=== PATIENT | female | born 1950 | race Caucasian/White ===

== ENCOUNTER 2016-08-19 06:29 | Emergency (ER) | payer MEDICARE, OTHER ==
--- NOTE | 2016-08-19 07:05 | EDM.PDOC ---
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 She notes she has had the droop of her right superior eyelid and paresthesias of her right face and right arm for the last 3 days as well with no resolution. She denies other symptoms or complaints including headache, visual changes, speech difficulty, seizures, focal weakness or numbness or paresthesias, nausea or vomiting, etc. She denies trauma to her head or other injuries. Has history of hypertension treated with metoprolol, denies history of MA or stroke. Denies history of Phan's Palsy. - Related Data Allergies Allergy/AdvReac Type Severity Reaction Status Date / Time codeine Allergy Other Verified 05/31/14 21:37 ofloxacin [From Floxin] Allergy Other Verified 05/31/14 21:37 [id number] Reductase Allergy Other Verified 05/31/14 21:37 Inhibitor Home Meds: Home Meds Aspirin [Children's Aspirin] 81 mg PO DAILY 05/31/14 [History] Biotin 1 mg PO DAILY 05/31/14 [History] Famotidine [Pepcid] 10 mg PO DAILY PRN 05/31/14 [History] Latanoprost [Latanoprost] 1 drop EYELF BEDTIME 05/31/14 [History] Lutein/Minerals/Vit A,C & E [Ocuvite] 1 tab PO DAILY 05/31/14 [History] Metoprolol Tartrate 25 mg PO DAILY 05/31/14 [History] Multivitamin with Minerals [Hair, Skin & Nails] 1 tab PO DAILY 05/31/14 [History ] Timolol [Betimol] 1 drop EYELF DAILY 05/31/14 [History] Ubidecarenone [Coq10] 50 mg PO DAILY 05/31/14 [History] Past Medical History Cardiovascular History: Reports: Hypertension. Denies: MA Neurological History: Denies: Brain Injury, Cerebral Aneurysms, Concussion, CVA , Head Trauma, TIA Social & Family History - Tobacco Use Smoking Status *Q: Former Smoker Years of Tobacco use: 32 Second Hand Smoke Exposure: Yes - Alcohol Use Days Per Week of Alcohol Use: 0 (No previous DWI, etc.) Number of Drinks Per Day: 1 (One beer every 3 months) Total Drinks Per Week: 0 - Recreational Drug Use Recreational Drug Use: No Drug Use in Last 12 Months: No - Living Situation & Occupation Living situation: Reports: , Occupation: Employed ED ROS GENERAL - Review of Systems Review Of Systems: ROS reveals no pertinent complaints other than HPI. ED EXAM, NEURO - Physical Exam Exam: See Below Text/Narrative:: Vitals SBP 150/84 HR 70 O2 98% on Room Air RR 16 T Exam Limited By: No Limitations General Appearance: Alert, WD/WN, No Apparent Distress Eye Exam: Bilateral Eye: EOMI, Normal Fundi, Normal Inspection, PERRL Ears: Normal External Exam, Normal Canal, Hearing Grossly Normal, Normal TMs Nose: Normal Inspection, Normal Mucosa, No Blood Throat/Mouth: Normal Inspection, Normal Lips, Normal Teeth, Normal Gums, Normal Oropharynx, Normal Voice, No Airway Compromise Head Exam: Atraumatic, Normocephalic Neck: Normal Inspection, Supple, Non-Tender, Full Range of Motion. No: Lymphadenopathy (L), Lymphadenopathy (R), Tender Lateral, Tender Midline Respiratory/Chest: No Respiratory Distress, Lungs Clear, Normal Breath Sounds, No Accessory Muscle Use, Chest Non-Tender Cardiovascular: Normal Peripheral Pulses, Regular Rate, Rhythm, No Edema, No Gallop, No Murmur, No Rub GI/Abdominal: Normal Bowel Sounds, Soft, Non-Tender, No Organomegaly, No Distention Neurological: Alert, Normal Mood/Affect, Normal Dorsiflexion, Normal Plantar Flexion, Normal Gait, Normal Reflexes, No Motor/Sensory Deficits, Oriented x 3, Other (Subtle droop of right superior eyelid. Able to open and close right eye with full strength. Remainder of cranial nerves II-XII intact. Subjective paresthesias of right arm but no appreciable sensory deficits to LT, PP, or proprioception of all extremities. 2-point discrimination intact throughout body. No pronator drift of arms or legs. No dysmetria. No clonus or spasticity. Speech normal without dysarthria or aphasia. Calculation, naming, and praxis are intact. NIH Stroke Scale Score of 1 for mild droop of right superior eyelid and stable on exam every 15 minutes x 3. ) DTR: 2+: Patella (R), Patella (L), Achilles (R), Achilles (L) Back Exam: Normal Inspection, Full Range of Motion. No: CVA Tenderness (L), CVA Tenderness (R), Paraspinal Tenderness, Vertebral Tenderness Extremities: Normal Inspection, Normal Range of Motion, Non-Tender, No Pedal Edema, Normal Capillary Refill Psychiatric: Normal Affect, Normal Mood Skin Exam: Warm, Dry, Intact, Normal Color, No Rash Course - Orders/Labs/Meds Orders: Active Orders 24 hr Category Date Time Status Head wo Cont [CT] Stat Exams 08/19/16 06:55 Taken Labs: Laboratory Tests 08/19/16 08/19/16 08/19/16 Range/Units 06:50 06:50 06:50 WBC 4.8 (4.0-10.2) K/uL RBC 4.59 (3.77-5.09) M/uL Hgb 13.5 (11.7-15.5) g/dL Hct 40.4 (34.0-46.0) % MCV 88.0 (84.0-98.0) fL MCH 29.4 (28.2-33.3) pg MCHC 33.4 (31.7-36.0) g/dL RDW 12.9 (11.2-14.1) % Plt Count 251 (150-350) K/uL Neut % (Auto) 52.3 (45.0-80.0) % Lymph % (Auto) 32.0 (10.0-50.0) % [place] % (Auto) 12.6 (2.0-14.0) % Eos % (Auto) 2.5 (0.0-5.0) % Baso % (Auto) 0.6 (0.0-2.0) % Neut # (Auto) 2.48 (1.40-7.00) K/uL Lymph # (Auto) 1.52 (0.50-3.50) K/uL [place] # (Auto) 0.60 (0.00-1.00) K/uL Eos # (Auto) 0.12 (0.00-0.50) K/uL Baso # (Auto) 0.03 (0.00-0.20) K/uL PT 10.2 (9.8-11.7) SEC INR 1.0 APTT 26.6 (23.5-30.0) SEC Sodium 141 (136-145) mmol/L Potassium 4.1 (3.5-5.1) mmol/L Chloride 108 H (98-107) mmol/L Carbon Dioxide 26.8 (21.0-32.0) mmol/L BUN 21 H (7-18) mg/dL Creatinine 0.64 (0.51-1.17) mg/dL Est Cr Clr Drug Dosing TNP Estimated GFR (MDRD) > 60 mL/min Glucose 130 H (74-106) mg/dL Calcium 8.9 (8.5-10.1) mg/dL Total Bilirubin 0.7 (0.2-1.0) mg/dL AST 22 (15-37) U/L ALT 18 (12-78) U/L Alkaline Phosphatase 121 H (46-116) IU/L Total Protein 6.9 (6.4-8.2) g/dL Albumin 3.6 (3.4-5.0) g/dL - Radiology Interpretation Free Text/Narrative:: EKG shows NSR with rate of [address] elevation or other abnormalities. Departure - Departure Time of Disposition: 07:40 Disposition: DC/Tfer to Acute Hospital 02 Clinical Impression: Facial paresthesia, Paresthesia of right upper extremity Drooping eyelid Qualifiers: Laterality: right Qualified Code(s): H02.401 - Unspecified ptosis of right eyelid - Discharge Information Forms: ED Department Discharge - My Orders Last 24 Hours: My Active Orders 08/19/16 06:55 Head wo Cont [CT] Stat - Assessment/Plan Last 24 Hours: My Active Orders 08/19/16 06:55 Head wo Cont [CT] Stat Assessment:: Droop of right eyelid, House-Brackmann 2. Paresthesias of right face and arm. NIH Stroke Scale Score of 1 for slight droop of right eyelid. Plan: 1. CT of the head normal. 2. Called to discuss with on-call neurologist at [facility] Dr. Baltazar who agrees with transfer to ER with MRI of brain and CTA. 3. Discussed with ER provider Dr. Guan who agrees to accept. 4. Allow permissive hypertension with SBP up to 185. 5. Transfer by ALS ground ambulance to [facility] ER in [place], [place] with telemetry, pulse oximetry, NS at 100 mL/hour, oxygen to keep O2 > 92%, and permissive hypertension with SBP up to 185.
[2016-08-19 07:17] LABS: CHLORIDE,CL 108 mmol/L (98-107); SODIUM,NA 141 mmol/L (136-145)
[2016-08-19] MEDS ORDERED: Sodium Chloride 0.9% 1,000 ML IV SCH (08:15)
== END 2016-08-19 08:14 ==
LOC: LL.ED 06:29
DX: H02.401 Unspecified ptosis of right eyelid (principal); R20.8 Other disturbances of skin sensation; I10 Essential (primary) hypertension; Z87.891 Personal history of nicotine dependence; Z88.5 Allergy status to narcotic agent; Z88.8 Allergy status to other drugs, medicaments and biological substances; Z79.82 Long term (current) use of aspirin; Z79.899 Other long term (current) drug therapy
CPT/HCPCS: 36000; 36415; 70450; 71010; 80053; 82962; 85025; 85610; 85730; 99284; 99285

== ENCOUNTER 2019-04-01 07:52 | Day surgery (SDC) | payer MEDICARE, OTHER ==
[~2019-04-01 07:52] MED LIST: Lactated Ringers 1,000 ML IV SCH; Sodium Chloride 0.9% 10 ML Syringe FLUSH PRN
[2019-04-01] MEDS ORDERED: Midazolam 1 MG/ML 2 ML SDV ONE ×2 (08:38→09:16)
[2019-04-01] MEDS ORDERED: Propofol 200 MG/20 ML SDV ONE ×2 (08:39→09:16)
--- NOTE | 2019-04-01 09:16 | PCM.PN ---
- General Info Date of Service: 04/01/19 - Review of Systems Systems Review Comment:: 68 y/o female here for colonoscopy. Last colon exam was 12 years ago. She has noted painful area of swelling in perineum recently with small amount of bleeding. Proposed colonoscopy discussed with the patient. Will examine perineum but no guarantee of lesion removal made. She agrees to proceed accepting risks. - Patient Data Vitals - Most Recent: Last Vital Signs Temp 97.8 F 04/01/19 08:25 Pulse 71 04/01/19 08:25 Resp 18 04/01/19 08:25 BP 126/78 04/01/19 08:25 Pulse Ox 97 04/01/19 08:25 Weight - Most Recent: 51.71 kg Med Orders - Current: Current Medications Lactated Ringer's (Ringers, Lactated) 1,000 mls @ 125 mls/hr IV ASDIRECTED KRISTINA Last Admin: 04/01/19 08:37 Dose: 125 mls/hr Sodium Chloride (Saline Flush) 10 ml FLUSH ASDIRECTED PRN PRN Reason: Keep Vein Open Discontinued Medications Midazolam HCl (Versed 1 Mg/Ml) Confirm Administered Dose 2 mg .ROUTE .STK-MED ONE Stop: 04/01/19 08:39 Propofol (Diprivan 20 Ml) Confirm Administered Dose 400 mg .ROUTE .STK-MED ONE Stop: 04/01/19 08:40 Sepsis Event Note - Focused Exam Vital Signs: Vital Signs Temp Pulse Resp BP Pulse Ox 04/01/19 08:25 97.8 F 71 18 126/78 97 Date Exam was Performed: 04/01/19 Time Exam was Performed: 09:12 - Problem List Review Problem List Initiated/Reviewed/Updated: Yes - Assessment Assessment:: Colon cancer screening perineal lesion - Plan Plan:: Colonoscopy
--- NOTE | 2019-04-01 09:49 | PCM.OPNOTE ---
- General Post-Op/Procedure Note Date of Surgery/Procedure: 04/01/19 Operative Procedure(s): Colonoscopy and Anoscopy Findings: Inflamed external hemorrhoids Normal Colon Pre Op Diagnosis: Colon Cancer Screening Post-Op Diagnosis: Normal Colon. External Hemorrhoids Anesthesia Technique: MAC Primary Surgeon: Juan Zhang Pathology: none EBL in mLs: 0 Complications: None Condition: Good
[2019-04-01 10:22] VITALS: BP 124/78; PULSE 77
--- NOTE | 2019-04-01 10:24 | OR ---
Date of Procedure: 04/01/2019 PREOPERATIVE DIAGNOSIS: Colon cancer screening. POSTOPERATIVE DIAGNOSIS: External hemorrhoids. OPERATIONS PERFORMED: Colonoscopy and anoscopy. INDICATIONS FOR SURGERY: This 68-year-old female comes for screening colonoscopy. She has recently noticed some persistent burning discomfort in the area of the rectum. FINDINGS: The patient's colon appears normal. No polyps or other lesions were seen. She is noted to have some external hemorrhoidal tissue most prominently anteriorly near the midline with a mild degree of induration and mild hyperemia of the tissue. No other rectal masses or pathology were seen. DESCRIPTION OF PROCEDURE: The patient was taken to the operating room. She was given intravenous sedation, and with her in the left lateral decubitus position, examination of the rectum was carried out. Some prominent external hemorrhoid tissue was noted anteriorly, and there was mild induration and mild hyperemia, but no isolated lesions or rectal masses were noted. Digital rectal exam was performed. Anoscopy was also performed and no other pathology was identified. The Olympus colonoscope was inserted into the rectum. Retroflexed examination of the rectal canal was performed. The scope was then carefully advanced under direct visualization through the entire length of the colon until the cecum was reached. Cecal acquisition was confirmed by noting the normal internal cecal anatomy including the appendiceal orifice and ileocecal valve. The light was also noted to transilluminate the abdominal wall in the right lower quadrant. After examining the cecum, the scope was slowly withdrawn sequentially re- examining the colonic segments until the entire colon and rectum had been fully examined. The scope was removed, and the patient was taken from the operating room in satisfactory condition. ESTIMATED BLOOD LOSS: 0. COMPLICATIONS: None. PROGNOSIS: Good. ALEX Zhang MD /[id number]
== END 2019-04-01 10:50 | disposition home or self-care (01) ==
LOC: LL.SDS 07:52
PROVIDERS: ATTEND Surgery
DX: K64.4 Residual hemorrhoidal skin tags (principal); I10 Essential (primary) hypertension; Z88.8 Allergy status to other drugs, medicaments and biological substances; Z88.1 Allergy status to other antibiotic agents; Z88.5 Allergy status to narcotic agent; Z79.82 Long term (current) use of aspirin; Z79.899 Other long term (current) drug therapy; Z87.891 Personal history of nicotine dependence
CPT/HCPCS: 45378; J2250; J2704; J7120; 00812

== ENCOUNTER 2019-07-17 15:40 | Observation (INO) | payer MEDICARE, OTHER ==
[2019-07-17] MEDS ORDERED: Ticagrelor 90 MG Tab PO ONE (15:48)
[2019-07-17] MEDS ORDERED: Famotidine 20 MG/2 ML SDV IVPUSH ONE (15:48)
[2019-07-17] MEDS ORDERED: Metoprolol Tartrate 5 MG/5 ML SDV IVPUSH ONE (15:48)
[2019-07-17] MEDS ORDERED: Aspirin 81 MG Tab.Chew CHEW ONE (15:48)
--- NOTE | 2019-07-17 15:48 | EDM.PDOC ---
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 140s to 160s with spontaneous improvement to the 110s without treatment. Note heart rates in the 80s prior to admission after IV Lopressor was given with no other ectopy or arrhythmia Chest x-ray, portable, shows evidence of moderate COPD changes with additional likely stable 2 cm left lower lobe pulmonary mass. Right upper lobe port noted. No pulmonary infiltrates, cardiomegaly, CHF, pneumothorax, etc. Departure - Departure Time of Disposition: 17:35 Disposition: Refer to Observation Condition: Good Clinical Impression: Peptic reflux disease, PSVT (paroxysmal supraventricular tachycardia), PVCs ( premature ventricular contractions), Hyperthyroidism, Hyponatremia, Hypoalbuminemia, Elevated lactic acid level, Lung cancer COPD (chronic obstructive pulmonary disease) Qualifiers: COPD type: emphysema Emphysema type: panlobular Qualified Code(s): J43.1 - Panlobular emphysema Osteoarthritis Qualifiers: Osteoarthritis location: multiple joints Osteoarthritis type: primary Qualified Code(s): M89.49 - Other hypertrophic osteoarthropathy, multiple sites Chest pain Qualifiers: Chest pain type: precordial pain Qualified Code(s): R07.2 - Precordial pain Hypertension Qualifiers: Hypertension type: essential hypertension Qualified Code(s): I10 - Essential ( primary) hypertension Sepsis Event Note - Focused Exam Vital Signs: Vital Signs Temp Pulse Pulse Resp BP BP Pulse Ox 07/17/19 17:10 90 20 121/73 98 07/17/19 16:40 90 22 H 132/74 98 07/17/19 16:03 113 H 132/73 07/17/19 15:47 36.4 C 147 H 19 133/100 H 96 Date Exam was Performed: 07/17/19 Time Exam was Performed: 18:40 - Problem List & Annotations (1) Chest pain SNOMED Code(s): 46467354 Code(s): R07.9 - CHEST PAIN, UNSPECIFIED Status: Acute Priority: Medium Current Visit: Yes Onset Date: 07/17/19 Annotation/Comment:: Chest pain protocol initiated immediately upon patient's arrival to this facility. Note symptoms likely related to her PSVT with resolution of symptoms after improvement of her tachycardia as below. Note positive CK index and elevated CK- MB as above with initiation of standard rule out NM orders. Cardiology consultation depending on her clinical course. Consider possible cardiac workup on an outpatient basis, however note current lung cancer therapy. In spite of mild BNP elevation and mild secondary hyponatremia no significant clinical evidence of CHF. Note normal echocardiogram on 02/16/19. Mild change in troponin I likely secondary to her tachycardia and borderline CHF as above, however this is still normal. Qualifiers: Chest pain type: precordial pain Qualified Code(s): R07.2 - Precordial pain (2) PSVT (paroxysmal supraventricular tachycardia) SNOMED Code(s): 45802235 Code(s): I47.1 - SUPRAVENTRICULAR TACHYCARDIA Status: Acute Priority: High Current Visit: Yes Onset Date: 02/08/19 Annotation/Comment:: Recurrence of PSVT with significant symptomatology as above. Note that the patient did take an additional dose of 180 mg of Procardia since ED shortly after onset of the above symptoms. Low-dose IV Lopressor was given in the emergency room with additional low-dose oral Toprol XL to be given shortly after admission. Further medication adjustment during this hospitalization depending on her clinical course. (3) Elevated lactic acid level SNOMED Code(s): 3293336 Code(s): R79.89 - OTHER SPECIFIED ABNORMAL FINDINGS OF BLOOD CHEMISTRY Status: Acute Priority: High Current Visit: Yes Onset Date: 07/17/19 Annotation/Comment:: No Fever, leukocytosis, or evidence of infection, sepsis, etc. Lactic acid level to be repeated with the next set of cardiac enzymes. IV fluids and IV antibiotics will be delayed for the time being secondary to borderline CHF as above, etc. (4) COPD (chronic obstructive pulmonary disease) SNOMED Code(s): 62783951 Code(s): J44.9 - CHRONIC OBSTRUCTIVE PULMONARY DISEASE, UNSPECIFIED Status : Chronic Priority: Medium Current Visit: Yes Annotation/Comment:: Stable by patient history with no current medical therapy or bronchitic symptoms Qualifiers: COPD type: emphysema Emphysema type: panlobular Qualified Code(s): J43.1 - Panlobular emphysema (5) Hypertension SNOMED Code(s): 35419891 Code(s): I10 - ESSENTIAL (PRIMARY) HYPERTENSION Status: Chronic Priority : High Current Visit: Yes Annotation/Comment:: Initially somewhat elevated secondary to her tachycardia, however improved after IV Lopressor as above. Qualifiers: Hypertension type: essential hypertension Qualified Code(s): I10 - Essential (primary) hypertension (6) Hyperthyroidism SNOMED Code(s): 21673518 Code(s): E05.90 - THYROTOXICOSIS, UNSP WITHOUT THYROTOXIC CRISIS OR STORM Status: Chronic Priority: Medium Current Visit: Yes Annotation/Comment:: Note that her previous low dose Synthroid supplement was discontinued by her providers at [facility] yesterday. Consider repeat TSH in 4 weeks. Further workup depending on her clinical course with multiple previous thyroid ultrasounds and also previous fine-needle aspiration biopsy as above. (7) Hypoalbuminemia SNOMED Code(s): 198394954 Code(s): E88.09 - [facility] DISORDERS OF PLASMA-PROTEIN METABOLISM, NEC Status: Acute Priority: Medium Current Visit: Yes Onset Date: 07/17/19 Annotation/Comment:: Observe for now. Note current chemotherapy. (8) Hyponatremia SNOMED Code(s): 28260260 Code(s): E87.1 - HYPO-OSMOLALITY AND HYPONATREMIA Status: Acute Priority : Medium Current Visit: Yes Onset Date: 07/17/19 Annotation/Comment:: As above (9) Osteoarthritis SNOMED Code(s): 314921388 Code(s): M19.90 - UNSPECIFIED OSTEOARTHRITIS, UNSPECIFIED SITE Status: Chronic Priority: Medium Current Visit: Yes Annotation/Comment:: Stable by history with no bone pain despite history of skeletal metastases from her lung cancer. Qualifiers: Osteoarthritis location: multiple joints Osteoarthritis type: primary Qualified Code(s): M89.49 - Other hypertrophic osteoarthropathy, multiple sites (10) PVCs (premature ventricular contractions) SNOMED Code(s): 52853763 Code(s): I49.3 - VENTRICULAR PREMATURE DEPOLARIZATION Status: Chronic Priority: Medium Current Visit: Yes Onset Date: 02/08/19 Annotation/ Comment:: No PVCs during today's evaluation. (11) Peptic reflux disease SNOMED Code(s): 182576848 Code(s): K21.9 - GASTRO-ESOPHAGEAL REFLUX DISEASE WITHOUT ESOPHAGITIS Status: Chronic Priority: Medium Current Visit: Yes Annotation/Comment:: Stable by history with high-dose IV Pepcid given as GI prophylaxis in the emergency room. (12) Lung cancer SNOMED Code(s): 225903278 Code(s): C34.90 - MALIGNANT NEOPLASM OF UNSP PART OF UNSP BRONCHUS OR LUNG Status: Acute Current Visit: Yes Annotation/Comment:: Note patient started chemotherapy for her left lower lobe lung cancer on 07/15/19 with no side effects to this point other than some mild oral stomatitis. Previous radiation therapy. Note close follow-up by oncology the [facility]. Fine- needle aspiration biopsy of the mediastinal/pulmonary lymph nodes indicate PD- L1 adenocarcinoma of the lung. Note previous history of tobacco use as above. Qualifiers: Laterality: left Lung location: lower lobe of lung Qualified Code(s): C34.32 - Malignant neoplasm of lower lobe, left bronchus or lung - Problem List Review Problem List Initiated/Reviewed/Updated: Yes - My Orders Last 24 Hours: My Active Orders 07/17/19 15:48 Cardiac Monitoring [RC] . DIRECTED Oxygen Therapy, ED [RC] PRN Vital Signs [RC] PFP Chest 1V Frontal [CR] Stat Sodium Chloride 0.9% [Saline Flush] 10 ml FLUSH ASDIRECTED PRN Obtain Past Medical Record [OM.PC] Urgent Resuscitation Status Stat 07/17/19 15:49 EKG Documentation Completion [RC] ASDIRECTED Peripheral IV Care [RC] . DIRECTED Pulse Oximetry [RC] CONTINUOUS Up With Assistance [RC] PFP Peripheral IV Insertion Adult [OM.PC] Stat 07/17/19 Breakfast Nothing per Oral Now Diet [DIET] - Assessment/Plan Admission H&P: Please use this note as an admission H&P Last 24 Hours: My Active Orders 07/17/19 15:48 Cardiac Monitoring [RC] . DIRECTED Oxygen Therapy, ED [RC] PRN Vital Signs [RC] PFP Chest 1V Frontal [CR] Stat Sodium Chloride 0.9% [Saline Flush] 10 ml FLUSH ASDIRECTED PRN Obtain Past Medical Record [OM.PC] Urgent Resuscitation Status Stat 07/17/19 15:49 EKG Documentation Completion [RC] ASDIRECTED Peripheral IV Care [RC] . DIRECTED Pulse Oximetry [RC] CONTINUOUS Up With Assistance [RC] PFP Peripheral IV Insertion Adult [OM.PC] Stat 07/17/19 Breakfast Nothing per Oral Now Diet [DIET] Assessment:: as above Plan: As above. Extensive precautions were given to the patient and her , who are in agreement with the treatment plan. The patient's condition is stable enough for observation status and general supervision.
[2019-07-17] MEDS: Sodium Chloride 0.9% 10 ML Syringe FLUSH PRN (16:23)
[2019-07-17 16:24] LABS: PTT,PARTIAL THROMBOPLSTIN TIME 20.2 SEC (24.5-32.8)
[2019-07-17 16:37] LABS: CHLORIDE,CL 101 mmol/L (98-107); SODIUM,NA 133 mmol/L (136-145)
[2019-07-17] MEDS ORDERED: Sodium Chloride 0.9% 10 ML Syringe FLUSH PRN (18:51)
[2019-07-17] MEDS ORDERED: Temazepam 15 MG Cap PO PRN (18:51)
[2019-07-17] MEDS ORDERED: Ondansetron 4 MG Tab.DIS PO PRN (19:15)
[2019-07-17] MEDS: Metoprolol Succinate 25 MG Tab.ER PO SCH (19:37)
[2019-07-17] MEDS: Latanoprost 0.005% Ophth Soln 2.5 ML Bottle EYEBOTH SCH (19:38)
[2019-07-17] MEDS: Timolol Maleate 0.5% Ophth Soln 5 ML Bottle EYEBOTH SCH (19:38)
[2019-07-18] MEDS: Acetaminophen 325 MG Tab PO PRN ×2 (04:24→15:27)
[2019-07-18 08:15] LABS: HEMOGLOBIN A1C 7.1 % (4.3-5.7)
[2019-07-18] MEDS: Diltiazem 180 MG Cap.CD PO SCH (08:33)
[2019-07-18] MEDS: Aspirin 81 MG Tab.Chew PO SCH (08:33)
[2019-07-18] MEDS: Magnesium Oxide 400 MG Tab PO SCH (08:33)
[2019-07-18] MEDS: Timolol Maleate 0.5% Ophth Soln 5 ML Bottle EYEBOTH SCH ×2 (08:33→20:20)
[2019-07-18] MEDS: Folic Acid 1 MG Tab PO SCH (08:33)
--- NOTE | 2019-07-18 09:06 | PCM.PN ---
- General Info Date of Service: 07/18/19 Admission Dx/Problem (Free Text): 1. Chest pain 2. PSVT 3. Left-sided lung cancer Functional Status: Reports: Pain Controlled, Ambulating, Urinating, Incentive Spirometry. Denies: Tolerating Diet (Nothing by mouth), New Symptoms Pain Score: 5 (Low back pain) - Review of Systems General: Reports: No Symptoms. Denies: Fever, Weakness, Fatigue, Malaise, Chills, Night Sweats, Appetite (Wants breakfast) HEENT: Reports: Glasses. Denies: Dysphasia, Ear Pain, Eye Pain, Headaches, Post Nasal Drip, Sinus Congestion, Sore Throat, Rhinitis, Visual Changes Pulmonary: Reports: No Symptoms. Denies: Shortness of Breath, Pleuritic Chest Pain, Cough, Sputum, Hemoptysis, Wheezing Cardiovascular: Reports: No Symptoms. Denies: Chest Pain, Palpitations, Dyspnea on Exertion, Orthopnea, PND, Edema, Lightheadedness Gastrointestinal: Reports: No Symptoms, Other (No bowel movement to this point) . Denies: Abdominal Pain, Constipation, Decreased Appetite, Diarrhea, Difficulty Swallowing, Flatus, Hematochezia, Melena, Nausea, Vomiting Genitourinary: Reports: No Symptoms. Denies: Dysuria, Frequency, Burning, Urgency, Incontinence, Hematuria, Retention, Flank Pain Musculoskeletal: Reports: Back Pain. Denies: Neck Pain, Shoulder Pain, Arm Pain , Hand Pain, Leg Pain, Foot Pain, Joint Pain, Joint Swelling Skin: Reports: Other (Facial edema secondary to recent steroid therapy). Denies : Diaphoresis Neurological: Reports: No Symptoms. Denies: Confusion, Dizziness, Headache, Paresthesia, Weakness Psychiatric: Reports: No Symptoms. Denies: Confusion, Depression, Anxiety, Agitation, Cravings, Hallucinations, Homicidal Ideation - Patient Data Vitals - Most Recent: Last Vital Signs Temp 36.1 C 07/18/19 07:40 Pulse 63 07/18/19 07:40 Resp 18 07/18/19 07:40 BP 121/70 07/18/19 07:40 Pulse Ox 97 07/18/19 07:40 Vital Signs - 24 hr 07/17/19 07/17/19 07/17/19 15:47 16:03 16:40 Temperature [ 36.4 C Temporal] Pulse, 113 H Peripheral Pulse, 147 H 90 Peripheral [ Apical] Pulse, Peripheral [ Pulse Oximetry] Respiratory 19 22 H Rate Blood Pressure 132/73 Blood Pressure 133/100 H 132/74 [Left Upper Arm ] Blood Pressure [Right Upper Arm] O2 Sat by Pulse 96 98 Oximetry 07/17/19 07/17/19 07/17/19 17:10 17:20 19:24 Temperature [ 36.3 C 36.8 C Temporal] Pulse, Peripheral Pulse, 90 88 73 Peripheral [ Apical] Pulse, Peripheral [ Pulse Oximetry] Respiratory 20 21 H 14 Rate Blood Pressure Blood Pressure 121/73 120/71 121/73 [Left Upper Arm ] Blood Pressure [Right Upper Arm] O2 Sat by Pulse 98 97 97 Oximetry 07/17/19 07/17/19 07/18/19 19:37 22:00 00:00 Temperature [ 36.2 C 37.1 C Temporal] Pulse, 73 Peripheral Pulse, 67 Peripheral [ Apical] Pulse, 71 Peripheral [ Pulse Oximetry] Respiratory 16 16 Rate Blood Pressure 121/73 Blood Pressure 120/74 [Left Upper Arm ] Blood Pressure 111/68 [Right Upper Arm] O2 Sat by Pulse 99 95 Oximetry 07/18/19 07/18/19 04:00 07:40 Temperature [ 36.8 C 36.1 C Temporal] Pulse, Peripheral Pulse, Peripheral [ Apical] Pulse, 68 63 Peripheral [ Pulse Oximetry] Respiratory 16 18 Rate Blood Pressure Blood Pressure 121/70 [Left Upper Arm ] Blood Pressure 109/68 [Right Upper Arm] O2 Sat by Pulse 100 97 Oximetry Weight - Most Recent: 48.852 kg I&O - Last 24 Hours: Intake & Output 07/17/19 07/18/19 07/18/19 22:59 06:59 14:59 Intake Total 0 Output Total 400 700 Balance -400 -700 Imaging Impressions - Last 24 Hours: equipment monitor phototypesetting shows normal sinus rhythm with heart rate in the 60s to 70s with no extrasystoles or arrhythmia. Lab Results Last 24 Hours: Laboratory Results - last 24 hr 07/17/19 07/17/19 07/17/19 Range/Units 16:00 16:00 16:00 WBC (4.0-10.2) K/uL RBC (3.77-5.09) M/uL Hgb (11.7-15.5) g/dL Hct (34.0-46.0) % MCV (84.0-98.0) fL MCH (28.2-33.3) pg MCHC (31.7-36.0) g/dL RDW (11.2-14.1) % Plt Count (150-350) K/uL Neut % (Auto) (45.0-80.0) % Lymph % (Auto) (10.0-50.0) % [place] % (Auto) (2.0-14.0) % Eos % (Auto) (0.0-5.0) % Baso % (Auto) (0.0-2.0) % Neut # (Auto) (1.40-7.00) K/uL Lymph # (Auto) (0.50-3.50) K/uL [place] # (Auto) (0.00-1.00) K/uL Eos # (Auto) (0.00-0.50) K/uL Baso # (Auto) (0.00-0.20) K/uL PT 9.1 L (9.5-12.0) SEC INR 0.9 APTT 20.2 L (24.5-32.8) SEC D-Dimer, Quantitative 302 (0-400) ng/mL Sodium 133 L (136-145) mmol/L Potassium 4.3 (3.5-5.1) mmol/L Chloride 101 (98-107) mmol/L Carbon Dioxide 22.2 (21.0-32.0) mmol/L BUN 50 H (7-18) mg/dL Creatinine 0.71 (0.51-1.17) mg/dL Est Cr Clr Drug Dosing TNP Estimated GFR (MDRD) > 60 mL/min Glucose 270 H (74-106) mg/dL Hemoglobin A1c (4.3-5.7) % Lactic Acid (0.4-2.0) mmol/L Uric Acid 2.7 (2.6-7.2) mg/dL Calcium 8.4 L (8.5-10.1) mg/dL Magnesium 1.8 (1.8-2.4) mg/dL Total Bilirubin 0.6 (0.2-1.0) mg/dL AST 22 (15-37) U/L ALT 46 (12-78) U/L Alkaline Phosphatase 73 (46-116) IU/L Creatine Kinase 72 (26-308) U/L Creatine Kinase Index 6.0 H (0.0-2.5) % CK-MB (CK-2) 4.30 H (0.00-3.60) ng/mL Troponin I 0.032 (0.000-0.056) ng/mL NT-Pro-B Natriuret Pep 176 H (0-125) pg/mL Total Protein 5.8 L (6.4-8.2) g/dL Albumin 2.9 L (3.4-5.0) g/dL TSH, Ultra Sensitive 0.025 L (0.358-3.740) mIU/mL 07/17/19 07/17/19 07/17/19 Range/Units 16:00 16:00 21:20 WBC 8.2 (4.0-10.2) K/uL RBC 4.55 (3.77-5.09) M/uL Hgb 13.2 (11.7-15.5) g/dL Hct 38.8 (34.0-46.0) % MCV 85.3 (84.0-98.0) fL MCH 29.0 (28.2-33.3) pg MCHC 34.0 (31.7-36.0) g/dL RDW 14.2 H (11.2-14.1) % Plt Count 182 D (150-350) K/uL Neut % (Auto) 89.3 H (45.0-80.0) % Lymph % (Auto) 5.7 L (10.0-50.0) % [place] % (Auto) 4.8 (2.0-14.0) % Eos % (Auto) 0.0 (0.0-5.0) % Baso % (Auto) 0.2 (0.0-2.0) % Neut # (Auto) 7.33 H (1.40-7.00) K/uL Lymph # (Auto) 0.47 L (0.50-3.50) K/uL [place] # (Auto) 0.39 (0.00-1.00) K/uL Eos # (Auto) 0.00 (0.00-0.50) K/uL Baso # (Auto) 0.02 (0.00-0.20) K/uL PT (9.5-12.0) SEC INR APTT (24.5-32.8) SEC D-Dimer, Quantitative (0-400) ng/mL Sodium (136-145) mmol/L Potassium (3.5-5.1) mmol/L Chloride (98-107) mmol/L Carbon Dioxide (21.0-32.0) mmol/L BUN (7-18) mg/dL Creatinine (0.51-1.17) mg/dL Est Cr Clr Drug Dosing Estimated GFR (MDRD) mL/min Glucose (74-106) mg/dL Hemoglobin A1c (4.3-5.7) % Lactic Acid 2.3 H 1.1 (0.4-2.0) mmol/L Uric Acid (2.6-7.2) mg/dL Calcium (8.5-10.1) mg/dL Magnesium (1.8-2.4) mg/dL Total Bilirubin (0.2-1.0) mg/dL AST (15-37) U/L ALT (12-78) U/L Alkaline Phosphatase (46-116) IU/L Creatine Kinase (26-308) U/L Creatine Kinase Index (0.0-2.5) % CK-MB (CK-2) (0.00-3.60) ng/mL Troponin I (0.000-0.056) ng/mL NT-Pro-B Natriuret Pep (0-125) pg/mL Total Protein (6.4-8.2) g/dL Albumin (3.4-5.0) g/dL TSH, Ultra Sensitive (0.358-3.740) mIU/mL 07/17/19 07/18/19 07/18/19 Range/Units 21:20 07:25 07:25 WBC 5.9 (4.0-10.2) K/uL RBC 4.56 (3.77-5.09) M/uL Hgb 13.2 (11.7-15.5) g/dL Hct 39.6 (34.0-46.0) % MCV 86.8 (84.0-98.0) fL MCH 28.9 (28.2-33.3) pg MCHC 33.3 (31.7-36.0) g/dL RDW 14.3 H (11.2-14.1) % Plt Count 178 (150-350) K/uL Neut % (Auto) 87.5 H (45.0-80.0) % Lymph % (Auto) 9.3 L (10.0-50.0) % [place] % (Auto) 2.4 (2.0-14.0) % Eos % (Auto) 0.5 (0.0-5.0) % Baso % (Auto) 0.3 (0.0-2.0) % Neut # (Auto) 5.16 (1.40-7.00) K/uL Lymph # (Auto) 0.55 (0.50-3.50) K/uL [place] # (Auto) 0.14 (0.00-1.00) K/uL Eos # (Auto) 0.03 (0.00-0.50) K/uL Baso # (Auto) 0.02 (0.00-0.20) K/uL PT (9.5-12.0) SEC INR APTT (24.5-32.8) SEC D-Dimer, Quantitative (0-400) ng/mL Sodium (136-145) mmol/L Potassium (3.5-5.1) mmol/L Chloride (98-107) mmol/L Carbon Dioxide (21.0-32.0) mmol/L BUN (7-18) mg/dL Creatinine (0.51-1.17) mg/dL Est Cr Clr Drug Dosing Estimated GFR (MDRD) mL/min Glucose (74-106) mg/dL Hemoglobin A1c 7.1 H (4.3-5.7) % Lactic Acid (0.4-2.0) mmol/L Uric Acid (2.6-7.2) mg/dL Calcium (8.5-10.1) mg/dL Magnesium (1.8-2.4) mg/dL Total Bilirubin (0.2-1.0) mg/dL AST (15-37) U/L ALT (12-78) U/L Alkaline Phosphatase (46-116) IU/L Creatine Kinase 60 (26-308) U/L Creatine Kinase Index 6.8 H (0.0-2.5) % CK-MB (CK-2) 4.10 H (0.00-3.60) ng/mL Troponin I 0.040 (0.000-0.056) ng/mL NT-Pro-B Natriuret Pep (0-125) pg/mL Total Protein (6.4-8.2) g/dL Albumin (3.4-5.0) g/dL TSH, Ultra Sensitive (0.358-3.740) mIU/mL [place] Results Last 24 Hours: None Med Orders - Current: Current Medications Acetaminophen (Tylenol) 650 mg PO Q4H PRN PRN Reason: Pain Last Admin: 07/18/19 04:24 Dose: 650 mg Aspirin (Aspirin) 81 mg PO DAILY [facility] Last Admin: 07/18/19 08:33 Dose: 81 mg Diltiazem HCl (Cardizem Cd) 180 mg PO DAILY [facility] Last Admin: 07/18/19 08:33 Dose: 180 mg Folic Acid (Folic Acid) 1 mg PO DAILY [facility] Last Admin: 07/18/19 08:33 Dose: 1 mg Latanoprost (Xalatan 0.005% Ophth Soln) 0 ml EYEBOTH BEDTIME [facility] Last Admin: 07/17/19 19:38 Dose: 1 drop Magnesium Oxide (Magnesium Oxide) 400 mg PO DAILY [facility] Last Admin: 07/18/19 08:33 Dose: 400 mg Metoprolol Succinate (Toprol Xl) 25 mg PO QPM [facility] Last Admin: 07/17/19 19:37 Dose: 25 mg Ondansetron HCl (Zofran Odt) 4 mg PO Q6H PRN PRN Reason: Nausea Sodium Chloride (Saline Flush) 10 ml FLUSH ASDIRECTED PRN PRN Reason: Keep Vein Open Last Admin: 07/17/19 16:23 Dose: 10 ml Sodium Chloride (Saline Flush) 10 ml FLUSH Q12HR PRN PRN Reason: Keep Vein Open Temazepam (Restoril) 15 mg PO BEDTIME PRN PRN Reason: Insomnia Timolol Maleate (Timoptic 0.5% Ophth Soln) 0 ml EYEBOTH Q12HR [facility] Last Admin: 07/18/19 08:33 Dose: 1 drop Discontinued Medications Aspirin (Aspirin) 324 mg CHEW ONETIME ONE Stop: 07/17/19 15:49 Last Admin: 07/17/19 16:05 Dose: 324 mg Famotidine (Pepcid) 40 mg IVPUSH ONETIME ONE Stop: 07/17/19 15:49 Last Admin: 07/17/19 16:23 Dose: 40 mg Metoprolol Tartrate (Lopressor) 2.5 mg IVPUSH ONETIME ONE Stop: 07/17/19 15:49 Last Admin: 07/17/19 16:03 Dose: 2.5 mg Ticagrelor (Brilinta) 180 mg PO ONETIME ONE Stop: 07/17/19 15:49 Last Admin: 07/17/19 16:05 Dose: 180 mg - Exam Quality Assessment: DVT Prophylaxis. No: Supplemental Oxygen, Central Line/PICC , Urine Catheter, Skin Breakdown, Restraints General: Alert, Oriented, Cooperative, No Acute Distress HEENT: Pupils Equal, Pupils Reactive, Mucous Membr. Moist/[place]. No: Scleral Icterus Neck: Supple, Trachea Midline, No JVD, No Thyromegaly. No: Lymphadenopathy, Carotid Bruit Lungs: Clear to Auscultation, Normal Respiratory Effort. No: Rub Cardiovascular: Regular Rate, Regular Rhythm, No Murmurs. No: Gallops, Rubs GI/Abdominal Exam: Normal Bowel Sounds, Soft, Non-Tender, No Organomegaly, No Distention, No Abnormal Bruit, No Mass. No: Guarding (Female) Exam: Deferred Back Exam: Decreased Range of Motion (Mild secondary to low back pain), Paraspinal Tenderness (Mild right lower lumbar). No: CVA Tenderness (L), CVA Tenderness (R), Muscle Spasm, Vertebral Tenderness Extremities: Normal Inspection, Normal Range of Motion, Non-Tender, No Pedal Edema, Normal Capillary Refill. No: Bryn's Sign Peripheral Pulses: 2+: Radial (L), Radial (R), Dorsalis Pedis (L), Dorsalis Pedis (R) Skin: Warm, Dry, Intact, Ecchymosis (Moderate at right superior anterior chest region at site of recent port placement) Wound/Incisions: Healing Well Neurological: No New Focal Deficit Psy/Mental Status: Alert, Normal Affect, Normal Mood. No: Agitated, Hallucinations, Withdrawal Symptoms EKG INTERPRETATION EKG Date: 07/18/19 Time: 07:58 Rhythm: Other (Sinus arrhythmia versus occasional PACs) Rate (Beats/Min): 66 Pool: Normal (Neutral) P-Wave: Present QRS: Normal (0.08 seconds) ST-T: Normal QT: Normal UT/PQ Interval: 0.09 seconds representing a stable short UT interval with no delta waves noted Comparison: Change From Previous EKG (Resolution of previous sinus tachycardia with new PACs versus sinus arrhythmia since last EKG on 07/17/19) EKG Interpretation Comments: 1. No acute ischemic changes 2. Short UT interval 3. Sinus arrhythmia versus PACs Sepsis Event Note - Evaluation Sepsis Screening Result: No Definite Risk - Focused Exam Vital Signs: Vital Signs Temp Pulse Pulse Resp BP BP Pulse Ox 07/18/19 07:40 36.1 C 63 18 121/70 97 07/18/19 04:00 36.8 C 68 16 109/68 100 07/18/19 00:00 37.1 C 71 16 111/68 95 07/17/19 22:00 36.2 C 67 16 120/74 99 Date Exam was Performed: 07/18/19 Time Exam was Performed: 09:23 - Problem List & Annotations (1) Chest pain SNOMED Code(s): 28804959 Code(s): R07.9 - CHEST PAIN, UNSPECIFIED Status: Acute Priority: Medium Current Visit: Yes Onset Date: 07/17/19 Qualifiers: Chest pain type: precordial pain Qualified Code(s): R07.2 - Precordial pain Annotation/Comment:: No chest pain since initial evaluation in the emergency room. Chest pain protocol initiated immediately upon patient's arrival to this facility. Note symptoms likely related to her PSVT with resolution of symptoms after improvement of her tachycardia as below. CK index, etc. slowly improving with low baseline CK. Note initial positive CK index and elevated CK-MB in the emergency room with initiation of standard rule out OR orders. Cardiology consultation depending on her clinical course. Consider possible cardiac workup on an outpatient basis, however note current lung cancer therapy. In spite of mild BNP elevation and mild secondary hyponatremia no significant clinical evidence of CHF. Initiate low-dose V Lasix therapy once chemistry machine has been fixed and electrolytes are available. Note normal echocardiogram on . Mild change in troponin I likely secondary to her tachycardia and borderline CHF. CHF as above, however this is still normal. (2) PSVT (paroxysmal supraventricular tachycardia) SNOMED Code(s): 56248915 Code(s): I47.1 - SUPRAVENTRICULAR TACHYCARDIA Status: Acute Priority: High Current Visit: Yes Onset Date: 02/08/19 Annotation/Comment:: Recurrence of PSVT with significant symptomatology as per emergency room note. Note that the patient did take an additional dose of 180 mg of diazepam CD shortly after onset of the above symptoms. Low-dose IV Lopressor was given in the emergency room with additional low-dose oral Toprol XL to be given shortly after admission. Secondary to high-dose oral Cardizem CD yesterday as above the patient will be observed in observation status for an additional 24 hours with rhythm strips to be conducted with ambulation on a every shift basis. Further medication adjustment during this hospitalization depending on her clinical course. [facility] physician assumes care in the a.m. with likely discharge to home tomorrow. (3) Elevated lactic acid level SNOMED Code(s): 0493502 Code(s): R79.89 - OTHER SPECIFIED ABNORMAL FINDINGS OF BLOOD CHEMISTRY Status: Acute Priority: High Current Visit: Yes Onset Date: 07/17/19 Annotation/Comment:: No Fever, leukocytosis, or evidence of infection, sepsis, etc. . Lactic acid level was repeated with an etc. of cardiac enzymes and was normal. IV fluids and IV antibiotics will be delayed for the time being secondary to borderline CHF as above, etc. (4) COPD (chronic obstructive pulmonary disease) SNOMED Code(s): 41234741 Code(s): J44.9 - CHRONIC OBSTRUCTIVE PULMONARY DISEASE, UNSPECIFIED Status : Chronic Priority: [facility] Current Visit: Yes Qualifiers: COPD type: emphysema Emphysema type: panlobular Qualified Code(s): J43.1 - Panlobular emphysema Annotation/Comment:: Stable by patient history with no current medical therapy or bronchitic symptoms (5) Hypertension SNOMED Code(s): 19159301 Code(s): I10 - ESSENTIAL (PRIMARY) HYPERTENSION Status: Chronic Priority : High Current Visit: Yes Qualifiers: Hypertension type: essential hypertension Qualified Code(s): I10 - Essential (primary) hypertension Annotation/Comment:: Initially somewhat elevated in the emergency room secondary to her tachycardia, however improved after IV Lopressor as above. Continue low-dose Toprol-XL every afternoon basis, which is also beneficial for her recurrent PSVT. Otherwise vital signs and blood pressures were stable during this hospitalization. (6) Hyperthyroidism SNOMED Code(s): 79358202 Code(s): E05.90 - THYROTOXICOSIS, UNSP WITHOUT THYROTOXIC CRISIS OR STORM Status: Chronic Priority: Medium Current Visit: Yes Annotation/Comment:: Note that her previous low dose Synthroid supplement was discontinued by her providers at [facility] yesterday. Consider repeat TSH in 4 weeks. Further workup depending on her clinical course with multiple previous thyroid ultrasounds and also previous fine-needle aspiration biopsy as per emergency room note. (7) Hypoalbuminemia SNOMED Code(s): 146947230 Code(s): E88.09 - [facility] DISORDERS OF PLASMA-PROTEIN METABOLISM, NEC Status: Acute Priority: Medium Current Visit: Yes Onset Date: 07/17/19 Annotation/Comment:: Observe for now. Note current chemotherapy. (8) Hyponatremia SNOMED Code(s): 01035662 Code(s): E87.1 - HYPO-OSMOLALITY AND HYPONATREMIA Status: Acute Priority : Medium Current Visit: Yes Onset Date: 07/17/19 Annotation/Comment:: As above (9) Osteoarthritis SNOMED Code(s): 500542991 Code(s): M19.90 - UNSPECIFIED OSTEOARTHRITIS, UNSPECIFIED SITE Status: Chronic Priority: Medium Current Visit: Yes Qualifiers: Osteoarthritis location: multiple joints Osteoarthritis type: primary Qualified Code(s): M89.49 - Other hypertrophic osteoarthropathy, multiple sites Annotation/Comment:: Stable by history with no bone pain despite history of skeletal metastases from her lung cancer. Some exacerbation of her chronic low back pain and very to the hospital bed. Note previous Ultram therapy. (10) PVCs (premature ventricular contractions) SNOMED Code(s): 54325108 Code(s): I49.3 - VENTRICULAR PREMATURE DEPOLARIZATION Status: Chronic Priority: Medium Current Visit: Yes Onset Date: 02/08/19 Annotation/ Comment:: No PVCs during emergency room evaluation with questionable PACs versus sinus arrhythmia time of EKG on 07/17. (11) Peptic reflux disease SNOMED Code(s): 442493526 Code(s): K21.9 - GASTRO-ESOPHAGEAL REFLUX DISEASE WITHOUT ESOPHAGITIS Status: Chronic Priority: Medium Current Visit: Yes Annotation/Comment:: Stable by history with high-dose IV Pepcid given as GI prophylaxis in the emergency room. (12) Lung cancer SNOMED Code(s): 988780658 Code(s): C34.90 - MALIGNANT NEOPLASM OF UNSP PART OF UNSP BRONCHUS OR LUNG Status: Acute Current Visit: Yes Qualifiers: Laterality: left Lung location: lower lobe of lung Qualified Code(s): C34.32 - Malignant neoplasm of lower lobe, left bronchus or lung Annotation/Comment:: Note patient started chemotherapy for her left lower lobe lung cancer on 07/15/19 with no side effects to this point other than some mild oral stomatitis. Previous radiation therapy. Note close follow-up by oncology the [facility]. Fine-needle aspiration biopsy of the mediastinal /pulmonary lymph nodes indicate PD-L1 adenocarcinoma of the lung. Note previous history of tobacco use as above. (13) Hyperglycemia SNOMED Code(s): 99216380 Code(s): R73.9 - HYPERGLYCEMIA, UNSPECIFIED Status: Chronic Priority: Medium Current Visit: Yes Annotation/Comment:: Previous history of borderline hyperglycemia, which was diet-controlled. Note recent high-dose prednisone therapy secondary to her chemotherapy. Glycosylated hemoglobin mildly elevated today with some hyperlipidemia, however excellent HDL. Observe for now. - Problem List Review Problem List Initiated/Reviewed/Updated: Yes - My Orders Last 24 Hours: My Active Orders 07/17/19 15:48 Cardiac Monitoring [RC] Q2HR Chest 1V Frontal [CR] Stat Sodium Chloride 0.9% [Saline Flush] 10 ml FLUSH ASDIRECTED PRN Resuscitation Status Stat 07/17/19 15:49 Peripheral IV Insertion Adult [OM.PC] Stat 07/17/19 18:50 Metoprolol Succinate [Toprol XL] 25 mg PO QPM 07/17/19 18:51 Antiembolic Devices [RC] , Communication Order [RC] ROUTINE Height and Weight [RC] DAILY Intake and Output Strict [RC] 18 Oxygen Therapy [RC] .PRN Pulse Oximetry [RC] .PRN Up With Assistance [RC] ASDIRECTED Vaccines to be Administered [RC] .DISCHARGE Acetaminophen [Tylenol] 650 mg PO Q4H PRN Sodium Chloride 0.9% [Saline Flush] 10 ml FLUSH Q12HR PRN Temazepam [Restoril] 15 mg PO BEDTIME PRN Antiembolic Hose [OM.PC] Routine DVT/VTE Prophylaxis Reflex [OM.PC] Routine GM Immunization Reflex [OM.PC] Click To Edit 07/17/19 19:15 Ondansetron [Zofran ODT] 4 mg PO Q6H PRN 07/17/19 20:00 Latanoprost [Xalatan 0.005% Ophth Soln] 0 ml EYEBOTH BEDTIME timoloL maleate [Timoptic 0.5% Ophth Soln] 0 ml EYEBOTH Q12HR 07/17/19 22:58 Vital Signs [RC] Q4HR 07/18/19 05:11 EKG Documentation Completion [RC] ASDIRECTED 07/18/19 07:25 CK W CKMB [CHEM] Routine COMPREHENSIVE METABOLIC PN,CMP [CHEM] Routine LIPID PANEL [CHEM] Routine PRO B-TYPE NATRIUR PEPT,BNPPRO [CHEM] Routine TROPONIN I [CHEM] Routine 07/18/19 08:00 Aspirin 81 mg PO DAILY Diltiazem [Cardizem CD] 180 mg PO DAILY Folic Acid 1 mg PO DAILY Magnesium Oxide 400 mg PO DAILY - Assessment Assessment:: As above - Plan Plan:: As above. Extensive precautions were given to the patient, who is in agreement with the treatment plan. [facility] physician assumes care tomorrow with likely discharge to home as above.
[2019-07-18] MEDS ORDERED: traMADol 50 MG Tab PO PRN (09:14)
[2019-07-18 11:41] LABS: CHLORIDE,CL 103 mmol/L (98-107); SODIUM,NA 141 mmol/L (136-145)
[2019-07-18] MEDS: Furosemide 20 MG/2 ML VIAL IVPUSH SCH ×3 (11:47→17:52)
[2019-07-18] MEDS: Sodium Chloride 0.9% 10 ML Syringe FLUSH PRN (11:47)
[2019-07-18] MEDS: Potassium Chloride 20 MEQ Tab.ER PO SCH ×2 (11:48→17:52)
[2019-07-18] MEDS: Metoprolol Succinate 25 MG Tab.ER PO SCH (17:51)
[2019-07-18] MEDS: Latanoprost 0.005% Ophth Soln 2.5 ML Bottle EYEBOTH SCH (20:20)
[2019-07-19 06:02] VITALS: BP 115/67; PULSE 84
[2019-07-19] MEDS: Acetaminophen 325 MG Tab PO PRN ×2 (06:03→10:31)
[2019-07-19 07:53] LABS: CHLORIDE,CL 99 mmol/L (98-107); SODIUM,NA 136 mmol/L (136-145)
[2019-07-19] MEDS: Magnesium Oxide 400 MG Tab PO SCH (08:26)
[2019-07-19] MEDS: Aspirin 81 MG Tab.Chew PO SCH (08:26)
[2019-07-19] MEDS: Folic Acid 1 MG Tab PO SCH (08:26)
[2019-07-19] MEDS: Potassium Chloride 20 MEQ Tab.ER PO SCH (08:26)
[2019-07-19] MEDS: Timolol Maleate 0.5% Ophth Soln 5 ML Bottle EYEBOTH SCH (08:27)
[2019-07-19] MEDS: Furosemide 20 MG/2 ML VIAL IVPUSH SCH (08:27)
[2019-07-19] MEDS: Diltiazem 180 MG Cap.CD PO SCH (08:27)
--- NOTE | 2019-07-19 12:28 | PCM.DCSUM1 ---
Discharge Summary - Hospital Course Brief History: Admitted for further evaluation of SVT/left shoulder discomfort. R/O TN protocol Diagnosis: Stroke: No - Discharge Data Discharge Date: 07/19/19 Discharge Disposition: Home, Self-Care 01 Condition: Good - Referral to Home Health Primary Care Physician: Tia Munguia NP - Discharge Diagnosis/Problem(s) (1) Chest pain SNOMED Code(s): 30868031 ICD Code: R07.9 - CHEST PAIN, UNSPECIFIED Status: Acute Priority: Medium Current Visit: Yes Onset Date: 07/17/19 Problem Details: No chest pain since initial evaluation in the emergency room. Chest pain protocol initiated immediately upon patient's arrival to this facility. Note symptoms likely related to her PSVT with resolution of symptoms after improvement of tachycardia. Note normal echocardiogram on 02/16/19. Normal Troponins. Qualifiers: Chest pain type: precordial pain Qualified Code(s): R07.2 - Precordial pain (2) PSVT (paroxysmal supraventricular tachycardia) SNOMED Code(s): 65947761 ICD Code: I47.1 - SUPRAVENTRICULAR TACHYCARDIA Status: Acute Priority: High Current Visit: Yes Onset Date: 02/08/19 Problem Details: Recurrence of PSVT with significant symptomatology as per emergency room note. Note that the patient did take an additional dose of 180 mg of diazepam CD shortly after onset of the above symptoms. Low-dose IV Lopressor was given in the emergency room with additional low-dose oral Toprol XL given after admission. Rate remained improved throughout stay, but noted to become elevated with activity at times. Call placed to [facility] and patient discussed with . EKGs/rhythm strips faxed. Noted to have some irregularities on strips at times that were suggestive of possible multifocal atrial tach or nonconducted P waves. recommended no additional mediation changes at this time. Patient should touch base with her providers at [facility] to arrange for 30 day electronic device monitor and Cardiology consult for further evaluation. (3) Elevated lactic acid level SNOMED Code(s): 5132441 ICD Code: R79.89 - OTHER SPECIFIED ABNORMAL FINDINGS OF BLOOD CHEMISTRY Status: Acute Priority: High Current Visit: Yes Onset Date: 07/17/19 Problem Details: Normalized (4) Hypoalbuminemia SNOMED Code(s): 026595689 ICD Code: E88.09 - OTH DISORDERS OF PLASMA-PROTEIN METABOLISM, NEC Status: Chronic Priority: Medium Current Visit: Yes Onset Date: 07/17/19 Problem Details: Observe for now. Note current chemotherapy. (5) Hyponatremia SNOMED Code(s): 48608709 ICD Code: E87.1 - HYPO-OSMOLALITY AND HYPONATREMIA Status: Acute Priority : Medium Current Visit: Yes Onset Date: 07/17/19 Problem Details: As above (6) Lung cancer SNOMED Code(s): 872727720 ICD Code: C34.90 - MALIGNANT NEOPLASM OF UNSP PART OF UNSP BRONCHUS OR LUNG Status: Acute Current Visit: Yes Problem Details: Note patient started chemotherapy for her left lower lobe lung cancer on 07/15/19 with no side effects to this point other than some mild oral stomatitis. Previous radiation therapy. Note close follow-up by oncology the [facility]. Fine- needle aspiration biopsy of the mediastinal/pulmonary lymph nodes indicate PD- L1 adenocarcinoma of the lung. Note previous history of tobacco use as above. Qualifiers: Laterality: left Lung location: lower lobe of lung Qualified Code(s): C34.32 - Malignant neoplasm of lower lobe, left bronchus or lung (7) COPD (chronic obstructive pulmonary disease) SNOMED Code(s): 13531407 ICD Code: J44.9 - CHRONIC OBSTRUCTIVE PULMONARY DISEASE, UNSPECIFIED Status : Chronic Priority: Medium Current Visit: Yes Problem Details: Stable by patient history with no current medical therapy or bronchitic symptoms Qualifiers: COPD type: emphysema Emphysema type: panlobular Qualified Code(s): J43.1 - Panlobular emphysema (8) Hypertension SNOMED Code(s): 62587337 ICD Code: I10 - ESSENTIAL (PRIMARY) HYPERTENSION Status: Chronic Priority : High Current Visit: Yes Problem Details: Initially somewhat elevated in the emergency room secondary to her tachycardia, however improved after IV Lopressor as above. Vital signs and blood pressures were stable during this hospitalization. Qualifiers: Hypertension type: essential hypertension Qualified Code(s): I10 - Essential (primary) hypertension (9) Osteoarthritis SNOMED Code(s): 361624562 ICD Code: M19.90 - UNSPECIFIED OSTEOARTHRITIS, UNSPECIFIED SITE Status: Chronic Priority: Medium Current Visit: Yes Problem Details: Stable by history with no bone pain despite history of skeletal metastases from her lung cancer. Some exacerbation of her chronic low back pain and very to the hospital bed. Note previous Ultram therapy. Qualifiers: Osteoarthritis location: multiple joints Osteoarthritis type: primary Qualified Code(s): M89.49 - Other hypertrophic osteoarthropathy, multiple sites (10) PVCs (premature ventricular contractions) SNOMED Code(s): 34134106 ICD Code: I49.3 - VENTRICULAR PREMATURE DEPOLARIZATION Status: Chronic Priority: Medium Current Visit: Yes Onset Date: 02/08/19 Problem Details: No PVCs during emergency room evaluation with questionable PACs versus sinus arrhythmia time of EKG on 07/17. (11) Peptic reflux disease SNOMED Code(s): 003796737 ICD Code: K21.9 - GASTRO-ESOPHAGEAL REFLUX DISEASE WITHOUT ESOPHAGITIS Status: Chronic Priority: Medium Current Visit: Yes Problem Details: Stable by history with high-dose IV Pepcid given as GI prophylaxis in the emergency room. - Patient Summary/Data Hospital Course: Overall unremarkable hospital course. PSVT did not return. Noted to have elevated pulse with activity at times but rate did not climb to level seen at ER presentation. Patient feeling back to baseline. No chest discomfort or SOB. Unremarkable cardiac labs/troponins. Telemetry did have a few changes at times as noted above and these were discussed with from Cardiology at [facility]. She recommended no other acute changes or interventions. Patient is recommended to follow up with Cardiology and also get set up with a 30 day event monitor. Plans/precautions discussed with patient prior to discharge. She is in agreement with plan. - Patient Instructions Diet: Usual Diet as Tolerated Activity: As Tolerated, No Lifting Over 10 Pounds Driving: May Drive Today Showering/Bathing: May Shower Other/Special Instructions: Call your providers at [facility] and relay to them that we spoke to from Cardiology today and she said that you need to be set up for a Cardiology referral. You also need to be set up for a 30 day event monitor. Take it easy. Observe for changes. Follow up otherwise as needed if you have any problems. - Discharge Plan *PRESCRIPTION DRUG MONITORING PROGRAM REVIEWED*: Not Applicable *COPY OF PRESCRIPTION DRUG MONITORING REPORT IN PATIENT GURINDER: Not Applicable Home Medications: Home Meds Latanoprost 1 drop EYEBOTH BEDTIME 05/31/14 [History] Cholecalciferol (Vitamin D3) [Vitamin D3] 4,000 unit PO DAILY 03/31/19 [History] Non-Formulary Medication [NF Drug] 2 tab PO ASDIRECTED PRN 03/31/19 [History] dilTIAZem HCL [Diltiazem 24Hr ER (Xr)] 180 mg PO DAILY 03/31/19 [History] timoloL maleate [Timoptic 0.5% Ophth Soln] 1 drop EYEBOTH Q12HR 03/31/19 [ History] Aspirin 81 mg PO DAILY 07/17/19 [History] Calcium Carbonate/Vitamin D3 [Caltrate 600+D 1500 MG-400 Units] 1 tab PO DAILY 07/17/19 [History] Folic Acid 1 tab PO DAILY 07/17/19 [History] Hydrocortisone [Hydrocortisone 2.5% Crm] 30 gm TOP BID PRN 07/17/19 [History] Magnesium Oxide [Magnesium] 400 mg PO DAILY 07/17/19 [History] Prochlorperazine [Compazine] 1 tab PO Q6H PRN 07/17/19 [History] ondansetron HCL [Ondansetron HCl] 1 tab PO Q6H PRN 07/17/19 [History] traMADol HCl [Tramadol HCl] 1 tab PO Q6H PRN 07/17/19 [History] Forms: ED Department Discharge Referrals: Tia Munguia [employer] [Primary Care Provider] - - Discharge Summary/Plan Comment DC Time >30 min.: No - General Info Date of Service: 07/19/19 Admission Dx/Problem (Free Text: 1. Chest pain 2. PSVT 3. Left-sided lung cancer Subjective Update: Feels much better, back to usual baseline. Does not feel any palpitations/fast heart rate. No syncopal/dizziness episodes. Would like to go home. Functional Status: Reports: Pain Controlled, Tolerating Diet, Ambulating, Urinating. Denies: New Symptoms - Review of Systems General: Reports: No Symptoms HEENT: Reports: Glasses Pulmonary: Denies: Shortness of Breath, Pleuritic Chest Pain, Cough, Sputum, Hemoptysis, Wheezing Cardiovascular: Denies: Chest Pain, Palpitations, Dyspnea on Exertion, Orthopnea , Lightheadedness Gastrointestinal: Reports: No Symptoms Genitourinary: Reports: No Symptoms Musculoskeletal: Reports: Back Pain (chronic) Neurological: Reports: No Symptoms Psychiatric: Reports: No Symptoms - Patient Data Vitals - Most Recent: Last Vital Signs Temp 37.1 C 07/19/19 06:00 Pulse 84 07/19/19 06:00 Resp 16 07/19/19 06:00 BP 115/67 07/19/19 06:00 Pulse Ox 98 07/19/19 06:00 Weight - Most Recent: 48.852 kg I&O - Last 24 hours: Intake & Output 07/18/19 07/19/19 07/19/19 22:59 06:59 14:59 Intake Total 540 200 360 Output Total 1000 1350 100 Balance -460 -1150 260 Lab Results - Last 24 hrs: Laboratory Results - last 24 hr 07/19/19 07/19/19 Range/Units 07:00 07:00 WBC 4.3 (4.0-10.2) K/uL RBC 4.78 (3.77-5.09) M/uL Hgb 13.6 (11.7-15.5) g/dL Hct 40.4 (34.0-46.0) % MCV 84.5 (84.0-98.0) fL MCH 28.5 (28.2-33.3) pg MCHC 33.7 (31.7-36.0) g/dL RDW 13.8 (11.2-14.1) % Plt Count 170 (150-350) K/uL Neut % (Auto) 88.8 H (45.0-80.0) % Lymph % (Auto) 8.3 L (10.0-50.0) % [place] % (Auto) 1.8 L (2.0-14.0) % Eos % (Auto) 0.9 (0.0-5.0) % Baso % (Auto) 0.2 (0.0-2.0) % Neut # (Auto) 3.85 (1.40-7.00) K/uL Lymph # (Auto) 0.36 L (0.50-3.50) K/uL [place] # (Auto) 0.08 (0.00-1.00) K/uL Eos # (Auto) 0.04 (0.00-0.50) K/uL Baso # (Auto) 0.01 (0.00-0.20) K/uL Sodium 136 (136-145) mmol/L Potassium 4.4 (3.5-5.1) mmol/L Chloride 99 (98-107) mmol/L Carbon Dioxide 27.6 (21.0-32.0) mmol/L BUN 27 H (7-18) mg/dL Creatinine 0.49 L (0.51-1.17) mg/dL Est Cr Clr Drug Dosing 77.83 mL/min Estimated GFR (MDRD) > 60 mL/min Glucose 111 H (74-106) mg/dL Calcium 8.8 (8.5-10.1) mg/dL Total Bilirubin 0.5 (0.2-1.0) mg/dL AST 29 (15-37) U/L ALT 58 (12-78) U/L Alkaline Phosphatase 72 (46-116) IU/L Creatine Kinase 40 (26-308) U/L Creatine Kinase Index 3.5 H (0.0-2.5) % CK-MB (CK-2) 1.40 (0.00-3.60) ng/mL Troponin I 0.004 (0.000-0.056) ng/mL NT-Pro-B Natriuret Pep 136 H (0-125) pg/mL Total Protein 6.0 L (6.4-8.2) g/dL Albumin 2.9 L (3.4-5.0) g/dL Med Orders - Current: Current Medications Acetaminophen (Tylenol) 650 mg PO Q4H PRN PRN Reason: Pain Last Admin: 07/19/19 10:31 Dose: 650 mg Aspirin (Aspirin) 81 mg PO DAILY [facility] Last Admin: 07/19/19 08:26 Dose: 81 mg Diltiazem HCl (Cardizem Cd) 180 mg PO DAILY [facility] Last Admin: 07/19/19 08:27 Dose: 180 mg Folic Acid (Folic Acid) 1 mg PO DAILY [facility] Last Admin: 07/19/19 08:26 Dose: 1 mg Furosemide (Lasix) 20 mg IVPUSH BID [facility] Last Admin: 07/19/19 08:27 Dose: Not Given Latanoprost (Xalatan 0.005% Ophth Soln) 0 ml EYEBOTH BEDTIME [facility] Last Admin: 07/18/19 20:20 Dose: 1 drop Magnesium Oxide (Magnesium Oxide) 400 mg PO DAILY [facility] Last Admin: 07/19/19 08:26 Dose: 400 mg Metoprolol Succinate (Toprol Xl) 25 mg PO QPM [facility] Last Admin: 07/18/19 17:51 Dose: 25 mg Ondansetron HCl (Zofran Odt) 4 mg PO Q6H PRN PRN Reason: Nausea Potassium Chloride (Klor-Con M20) 20 meq PO BID [facility] Last Admin: 07/19/19 08:26 Dose: 20 meq Sodium Chloride (Saline Flush) 10 ml FLUSH ASDIRECTED PRN PRN Reason: Keep Vein Open Last Admin: 07/18/19 11:47 Dose: 10 ml Sodium Chloride (Saline Flush) 10 ml FLUSH Q12HR PRN PRN Reason: Keep Vein Open Temazepam (Restoril) 15 mg PO BEDTIME PRN PRN Reason: Insomnia Timolol Maleate (Timoptic 0.5% Ophth Soln) 0 ml EYEBOTH Q12HR [facility] Last Admin: 07/19/19 08:27 Dose: 1 drop Tramadol HCl (Ultram) 50 mg PO Q6H PRN PRN Reason: Breakthrough Pain Last Admin: 07/18/19 09:41 Dose: 50 mg Discontinued Medications Aspirin (Aspirin) 324 mg CHEW ONETIME ONE Stop: 07/17/19 15:49 Last Admin: 07/17/19 16:05 Dose: 324 mg Famotidine (Pepcid) 40 mg IVPUSH ONETIME ONE Stop: 07/17/19 15:49 Last Admin: 07/17/19 16:23 Dose: 40 mg Furosemide (Lasix) 20 mg IVPUSH BIDDIURETIC [facility] Last Admin: 07/18/19 12:50 Dose: Not Given Metoprolol Tartrate (Lopressor) 2.5 mg IVPUSH ONETIME ONE Stop: 07/17/19 15:49 Last Admin: 07/17/19 16:03 Dose: 2.5 mg Ticagrelor (Brilinta) 180 mg PO ONETIME ONE Stop: 07/17/19 15:49 Last Admin: 07/17/19 16:05 Dose: 180 mg - Exam General: Reports: Alert, Oriented, Cooperative, No Acute Distress HEENT: Reports: Pupils Equal, Pupils Reactive, EOMI, Mucous Membr. Moist/[place] Neck: Reports: Supple Lungs: Reports: Clear to Auscultation, Normal Respiratory Effort Cardiovascular: Reports: Regular Rate, Regular Rhythm GI/Abdominal Exam: Soft, Non-Tender (Female) Exam: Deferred Rectal (Female) Exam: Deferred Back Exam: Denies: Muscle Spasm Extremities: Normal Range of Motion, Normal Capillary Refill Skin: Reports: Warm, Dry Neurological: Reports: No New Focal Deficit Psy/Mental Status: Reports: Alert, Normal Affect, Normal Mood EKG INTERPRETATION EKG Date: 07/19/19 Time: 07:03 Rhythm: Other (Sinus rhythm/short [place]) Rate (Beats/Min): 77 [place]: Normal P-Wave: Present QRS: Normal ST-T: Normal QT: Normal Comparison: No Change
== END 2019-07-19 12:45 | disposition home or self-care (01) ==
LOC: LL.ED 15:40 → UNDOADMOB 17:15 → LL.MS 17:15
PROVIDERS: ADMIT Family Medicine; ATTEND Family Medicine
DX: R07.2 Precordial pain (principal); I10 Essential (primary) hypertension; J44.9 Chronic obstructive pulmonary disease, unspecified; K21.9 Gastro-esophageal reflux disease without esophagitis; I47.1 Supraventricular tachycardia; I49.3 Ventricular premature depolarization; E05.90 Thyrotoxicosis, unspecified without thyrotoxic crisis or storm; E87.1 Hypo-osmolality and hyponatremia; E88.09 Other disorders of plasma-protein metabolism, not elsewhere classified; J43.1 Panlobular emphysema; M89.49 Other hypertrophic osteoarthropathy, multiple sites; R73.9 Hyperglycemia, unspecified; R79.89 Other specified abnormal findings of blood chemistry; C34.32 Malignant neoplasm of lower lobe, left bronchus or lung; Z79.82 Long term (current) use of aspirin; Z87.891 Personal history of nicotine dependence; Z88.5 Allergy status to narcotic agent; Z88.1 Allergy status to other antibiotic agents; Z88.8 Allergy status to other drugs, medicaments and biological substances; Z79.899 Other long term (current) drug therapy
CPT/HCPCS: 36415; 71045; 80053; 80061; 82550; 82553; 83036; 83605; 83735; 83880; 84443; 84484; 84550; 85025; 85379; 85610; 85730; 93005; 99285-25; A9270-GY; J1940; J3490